=== PATIENT | male | born 1960 | race Caucasian/White ===

== ENCOUNTER 2020-04-14 10:06 | Emergency (ER) | payer MEDICARE, BC ==
[2020-04-14 10:29] VITALS: BP 106/71; PULSE 100
[2020-04-14] MEDS ORDERED: Sodium Chloride 0.9% 10 ML Syringe FLUSH PRN (10:57)
--- NOTE | 2020-04-14 11:09 | EDM.PDOC ---
ED HPI GENERAL MEDICAL PROBLEM - General Chief Complaint: General Stated Complaint: LIGHT HEADED/WEAK Time Seen by Provider: 04/14/20 10:50 Source of Information: Reports: Patient History Limitations: Reports: No Limitations, Other (Vitals upon presentation the emergency department temp 96.7 pulse 100, respiratory rate 18, blood pressure 106/71, pulse ox 98% on room air.) - History of Present Illness INITIAL COMMENTS - FREE TEXT/NARRATIVE: 60-year-old male presents to the emergency department with complaints of dizziness and a dry throat for the past 3 days. States he went to the [facility] this morning and they referred him to the emergency department. States he has not had any syncopal episodes however he is dizzy and has a persistent dry throat. Patient does have a history of hypertension for which he takes Cardura. Is also diabetic controlled with Metformin and Levemir. States his blood sugars have been normal for him. - Related Data Allergies Allergy/AdvReac Type Severity Reaction Status Date / Time No Known Allergies Allergy Verified 04/14/20 10:29 Home Meds: Home Meds Cyclopentolate [Cyclogyl 1% Opth Soln] 1 drop EYEBOTH TID 02/04/15 [History] Doxazosin Mesylate [Cardura] 8 mg PO DAILY 02/04/15 [History] Insulin Detemir [Levemir Flextouch] 20 units SQ ACBREAKFAST 02/04/15 [History] Lisinopril [Prinivil] 10 mg PO DAILY 02/04/15 [History] NIFEdipine [Adalat cc] 30 mg PO DAILY 02/04/15 [History] Simvastatin [Zocor] 40 mg PO BEDTIME 02/04/15 [History] amLODIPine [Norvasc] 10 mg PO DAILY 02/04/15 [History] metFORMIN [Glucophage] 1,000 mg PO BID 02/04/15 [History] Past Medical History - Past Surgical History Other HEENT Surgeries/Procedures: 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 Denies: Fever, Chills, Malaise HEENT: Reports: Other (Patient is blind) Respiratory: Reports: No Symptoms Cardiovascular: Reports: Lightheadedness. Denies: Chest Pain, Edema, Palpitations, Syncope Endocrine: Reports: No Symptoms GI/Abdominal: Reports: No Symptoms : Reports: No Symptoms Musculoskeletal: Reports: No Symptoms Skin: Reports: No Symptoms Neurological: Reports: No Symptoms Psychiatric: Reports: No Symptoms Hematologic/Lymphatic: Reports: No Symptoms Immunologic: Reports: No Symptoms ED EXAM, GENERAL - Physical Exam Exam: See Below Exam Limited By: No Limitations General Appearance: Alert, WD/WN, No Apparent Distress Eye Exam: Bilateral Eye: Other (blind) Ears: Hearing Grossly Normal Nose: Normal Inspection Throat/Mouth: Normal Inspection, Normal Voice, No Airway Compromise Head: Atraumatic, Normocephalic Neck: Normal Inspection, Supple, Non-Tender, Full Range of Motion Respiratory/Chest: No Respiratory Distress, Lungs Clear, Normal Breath Sounds, No Accessory Muscle Use, Chest Non-Tender Cardiovascular: Normal Peripheral Pulses, Regular Rate, Rhythm, No Edema, No Murmur Peripheral Pulses: 2+: Radial (L), Radial (R), Dorsalis Pedis (L), Dorsalis Pedis (R) GI/Abdominal: Normal Bowel Sounds, Soft, Non-Tender, No Distention (Male) Exam: Deferred Rectal (Males) Exam: Deferred Back Exam: Normal Inspection, Full Range of Motion Extremities: Normal Inspection, Normal Range of Motion, Non-Tender, No Pedal Edema, Normal Capillary Refill Neurological: Alert, Oriented, Normal Cognition Psychiatric: Normal Affect, Normal Mood Skin Exam: Warm, Dry, Intact, Normal Color, No Rash Lymphatic: No Adenopathy #1 Interpretation EKG Date: 04/14/20 Time: 11:52 Rhythm: NSR Rate (Beats/Min): 83 [place]: Normal P-Wave: Present QRS: Normal ST-T: Normal QT: Normal EKG Interpretation Comments: Normal sinus rhythm per Dr. Perez interpretation. Course - Vital Signs Text/Narrative:: 60-year-old male presents to the emergency department with complaints of feeling dizzy and having a dry throat. Patient went to [facility] this morning to be evaluated however he was sent to the emergency department. Patient states he is felt weak and dizzy for the past 3 days and has had a very dry throat. He denies complaints of fever, chills, nausea, vomiting, diarrhea, headache, or general malaise. Denies syncopal episodes. Patient states he is a diabetic managed with Metformin and Levemir. States his blood sugars have been well controlled over the past few days. I have ordered a CBC a CMP, magnesium, troponin, chest x-ray, and an EKG. Last Recorded V/S: Last Vital Signs Temp 96.7 F L 04/14/20 10:25 Pulse 100 04/14/20 10:25 Resp 18 04/14/20 10:25 BP 106/71 04/14/20 10:25 Pulse Ox 98 04/14/20 10:25 - Orders/Labs/Meds Orders: Active Orders 24 hr Category Date Time Status EKG Documentation Completion [RC] STAT Care 04/14/20 10:57 Active Magnesium Sulfate/Water [Magnesium Sulfate in Water Med 04/14/20 12:20 Active Premix] 2 gm in 50 ml IV ONETIME Sodium Chloride 0.9% [Saline Flush] Med 04/14/20 10:57 Active 10 ml FLUSH ASDIRECTED PRN Saline Lock Insert [OM.PC] Stat Oth 04/14/20 10:57 Ordered Medication Orders Magnesium Sulfate (Magnesium Sulfate In Water Premix) 2 gm in 50 mls @ 25 mls/hr IV ONETIME ONE Stop: 04/14/20 14:19 Last Admin: 04/14/20 12:39 Dose: 25 mls/hr Documented by: HERMMIC Sodium Chloride (Saline Flush) 10 ml FLUSH ASDIRECTED PRN PRN Reason: Keep Vein Open Last Admin: 04/14/20 11:30 Dose: 10 ml Documented by: HERMMIC Labs: Laboratory Tests 04/14/20 04/14/20 Range/Units 11:20 11:20 WBC 6.68 (4.23-9.07) K/mm3 RBC 4.17 L (4.63-6.08) M/mm3 Hgb 12.9 L D (13.7-17.5) gm/dl Hct 39.0 L (40.1-51.0) % MCV 93.5 H (79.0-92.2) fl MCH 30.9 (25.7-32.2) pg MCHC 33.1 (32.2-35.5) g/dl RDW Std Deviation 42.4 (35.1-43.9) fL Plt Count 229 (163-337) K/mm3 MPV 8.8 L (9.4-12.3) fl Neut % (Auto) 71.9 H (34.0-67.9) % Lymph % (Auto) 19.8 L (21.8-53.1) % [place] % (Auto) 7.2 (5.3-12.2) % Eos % (Auto) 0.9 (0.8-7.0) Baso % (Auto) 0.1 (0.1-1.2) % Neut # (Auto) 4.80 (1.78-5.38) K/mm3 Lymph # (Auto) 1.32 (1.32-3.57) K/mm3 [place] # (Auto) 0.48 (0.30-0.82) K/mm3 Eos # (Auto) 0.06 (0.04-0.54) K/mm3 Baso # (Auto) 0.01 (0.01-0.08) K/mm3 Sodium 139 (136-145) mEq/L Potassium 5.2 H (3.5-5.1) mEq/L Chloride 106 (98-107) mEq/L Carbon Dioxide 22 (21-32) mEq/L Anion Gap 16.2 H (5-15) BUN 30 H (7-18) mg/dL Creatinine 2.3 H (0.7-1.3) mg/dL Est Cr Clr Drug Dosing 31.21 mL/min Estimated GFR (MDRD) 29 (>60) mL/min BUN/Creatinine Ratio 13.0 L (14-18) Glucose 87 (74-106) mg/dL Calcium 9.5 (8.5-10.1) mg/dL Magnesium 1.2 L (1.8-2.4) mg/dl Total Bilirubin 0.4 (0.2-1.0) mg/dL AST 22 (15-37) U/L ALT 37 (16-63) U/L Alkaline Phosphatase 67 (46-116) U/L Troponin I < 0.017 (0.00-0.056) ng/mL Total Protein 8.6 H (6.4-8.2) g/dl Albumin 3.9 (3.4-5.0) g/dl Globulin 4.7 gm/dL Albumin/Globulin Ratio 0.8 L (1-2) Meds: Medications Generic Name Dose Route Start Last Admin Trade Name Juliocesar PRN Reason Stop Dose Admin Magnesium Sulfate 2 gm in 50 mls @ 25 mls/hr 04/14/20 12:20 04/14/20 12:39 Magnesium Sulfate In Water Premix IV 04/14/20 14:19 25 mls/hr ONETIME ONE Administration Sodium Chloride 10 ml 04/14/20 10:57 04/14/20 11:30 Saline Flush FLUSH 10 ml ASDIRECTED PRN Administration Keep Vein Open Discontinued Medications Generic Name Dose Route Start Last Admin Trade Name Juliocesar PRN Reason Stop Dose Admin Sodium Chloride 1,000 mls @ 999 mls/hr 04/14/20 12:20 04/14/20 12:39 Normal Saline IV 04/14/20 13:20 999 mls/hr ONETIME ONE Administration Magnesium Oxide 400 mg 04/14/20 12:21 04/14/20 12:50 Magnesium Oxide PO 04/14/20 12:22 400 mg ONETIME ONE Administration - Radiology Interpretation Free Text/Narrative:: Nothing acute seen on portable chest x-ray. - Re-Assessments/Exams Free Text/Narrative Re-Assessment/Exam: 04/14/20 12:23 Labs reveal WBC 6.68, hemoglobin 12.9, hematocrit 39, potassium 5.2, anion gap 16.2, BUN 30, creatinine 2.3, magnesium 1.2, troponin less than 0.017. 04/14/20 12:23 I have ordered a liter of normal saline to run wide open, magnesium 2 g IV, and Mag-Ox 400 mg p.o. 04/14/20 14:02 We will discharge the patient to home with a prescription for Mag-Ox 400 mg daily for the next 5 days. Patient is to follow-up with Dr. Caldwell within the week. Departure - Departure Time of Disposition: 14:02 Disposition: Home, Self-Care 01 Condition: Good Clinical Impression: Hypomagnesemia - Discharge Information Referrals: Shiva Caldwell MD [Primary Care Provider] - Forms: ED Department Discharge Additional Instructions: You are seen in the ER with complaints of dizziness and a dry throat. Chest x- ray and electrocardiogram were unremarkable. All lab work was unremarkable with the exception of a low magnesium level. You were given 2 g of magnesium in the IV. And a liter of IV fluids. You will need to continue taking magnesium 400 mg orally once a day for the next 5 days. You will need to schedule an appointment to follow-up with Dr. Caldwell in the next week. Should your condition worsen or change please return to the emergency department Sepsis Event Note (ED) - Evaluation Sepsis Screening Result: No Definite Risk - Focused Exam Vital Signs: Vital Signs Temp Pulse Resp BP Pulse Ox 04/14/20 10:25 96.7 F L 100 18 106/71 98 - My Orders Last 24 Hours: My Active Orders 04/14/20 10:57 EKG Documentation Completion [RC] STAT Sodium Chloride 0.9% [Saline Flush] 10 ml FLUSH ASDIRECTED PRN Saline Lock Insert [OM.PC] Stat 04/14/20 12:20 Magnesium Sulfate/Water [Magnesium Sulfate in Water Premix] 2 gm in 50 ml IV ONETIME - Assessment/Plan Last 24 Hours: My Active Orders 04/14/20 10:57 EKG Documentation Completion [RC] STAT Sodium Chloride 0.9% [Saline Flush] 10 ml FLUSH ASDIRECTED PRN Saline Lock Insert [OM.PC] Stat 04/14/20 12:20 Magnesium Sulfate/Water [Magnesium Sulfate in Water Premix] 2 gm in 50 ml IV ONETIME
--- NOTE | 2020-04-14 11:54 | CR ---
Chest: Portable view of the chest was obtained. Comparison: Prior chest x-ray of 02/04/15. Heart size and mediastinum are normal. Minimal atelectasis is seen within the left mid to lower lung. Lungs otherwise are clear. Bony structures are grossly intact. Impression: 1. Findings believed to be incidental. Nothing acute is seen. Diagnostic code #2
[2020-04-14] MEDS ORDERED: Sodium Chloride 0.9% 1,000 ML IV ONE (12:20)
[2020-04-14] MEDS ORDERED: Magnesium Sulfate/Water 2 GM/50 ML BAG IV ONE (12:20)
[2020-04-14] MEDS ORDERED: Magnesium Oxide 400 MG Tab PO ONE (12:21)
== END 2020-04-14 14:31 | disposition home or self-care (01) ==
LOC: JD.ED 10:06
DX: E83.42 Hypomagnesemia (principal); I10 Essential (primary) hypertension; E11.9 Type 2 diabetes mellitus without complications; Z79.4 Long term (current) use of insulin; Z79.899 Other long term (current) drug therapy
CPT/HCPCS: 36415; 71045; 80053; 83735; 84484; 85025; 93005; 96365; 96366; 99284; A9270; J3475; J7030

== ENCOUNTER 2020-04-17 15:18 | Emergency (ER) | payer MEDICARE, BC ==
[2020-04-17 15:31] VITALS: BP 151/86; PULSE 91
--- NOTE | 2020-04-17 15:57 | EDM.PDOC ---
ED HPI GENERAL MEDICAL PROBLEM - General Chief Complaint: Headache Stated Complaint: CHILLS,WEAK,UNSTEADY Time Seen by Provider: 04/17/20 15:54 - History of Present Illness INITIAL COMMENTS - FREE TEXT/NARRATIVE: 60-year-old male presents the emergency room with continued lightheadedness in a swimming sensation in his head. Patient denies really having much of a headache he just is lightheaded and unsteady when he tries to get up on his feet. This seems to improve a little bit when he is up for a while. He was seen here several days ago received some IV fluids that helped a little bit and he was noted to have a low magnesium his BUN and creatinine are elevated as was his anion gap. Patient denies any fevers or chills and he has no pain. Patient has no breathing difficulty shortness of breath chest pain. Headache Pain Score (Numeric/FACES): 4 - Related Data Allergies Allergy/AdvReac Type Severity Reaction Status Date / Time No Known Allergies Allergy Verified 04/17/20 15:31 Home Meds: Home Meds Cyclopentolate [Cyclogyl 1% Opth Soln] 1 drop EYEBOTH TID 02/04/15 [History] Doxazosin Mesylate [Cardura] 8 mg PO DAILY 02/04/15 [History] Insulin Detemir [Levemir Flextouch] 20 units SQ ACBREAKFAST 02/04/15 [History] Lisinopril [Prinivil] 10 mg PO DAILY 02/04/15 [History] NIFEdipine [Adalat cc] 30 mg PO DAILY 02/04/15 [History] Simvastatin [Zocor] 40 mg PO BEDTIME 02/04/15 [History] amLODIPine [Norvasc] 10 mg PO DAILY 02/04/15 [History] metFORMIN [Glucophage] 1,000 mg PO BID 02/04/15 [History] Magnesium Oxide 400 mg PO DAILY #7 tab 04/14/20 [Rx] Aspirin [Aspirin EC] 81 mg PO DAILY 04/17/20 [History] Past Medical History Cardiovascular History: Reports: Hypertension Endocrine/Metabolic History: Reports: Diabetes, Type II, Obesity/BMI 30+ - Past Surgical History Other HEENT Surgeries/Procedures: 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 Denies: Fever, Chills, Weakness HEENT: Reports: No Symptoms, Other (Patient is completely blind) Respiratory: Reports: No Symptoms Cardiovascular: Reports: No Symptoms, Other (No history of heart failure or other cardiac problems) Endocrine: Reports: No Symptoms GI/Abdominal: Reports: No Symptoms : Reports: No Symptoms Musculoskeletal: Reports: No Symptoms Skin: Reports: No Symptoms Neurological: Reports: Other (He has some lightheadedness). Denies: Confusion Psychiatric: Reports: No Symptoms - Physical Exam Exam: See Below Exam Limited By: No Limitations General Appearance: Alert, WD/WN, No Apparent Distress Ears: Normal External Exam, Normal Canal, Hearing Grossly Normal, Normal TMs Nose: Normal Inspection, Normal Mucosa, No Blood Throat/Mouth: Normal Inspection, Normal Lips, Normal Teeth, Normal Gums, Normal Oropharynx, Normal Voice, No Airway Compromise Head Exam: Atraumatic, Normocephalic Neck: Normal Inspection, Supple, Non-Tender, Full Range of Motion. No: Lymphadenopathy (L), Lymphadenopathy (R) Respiratory/Chest: No Respiratory Distress, Lungs Clear, Normal Breath Sounds Cardiovascular: Regular Rate, Rhythm, No Edema, No Murmur GI/Abdominal: Normal Bowel Sounds, Soft, Non-Tender Neuro Exam (Abbreviated): Alert, Oriented, Normal Cognition, No Motor/Sensory Deficits, Other (Cranial nerves 4 through 12 intact) Back Exam: Normal Inspection. No: CVA Tenderness (L), CVA Tenderness (R) Extremities: No Pedal Edema Psychiatric: Normal Affect, Normal Mood Course - Vital Signs Last Recorded V/S: Last Vital Signs Temp 36.4 C 04/17/20 15:28 Pulse 91 04/17/20 15:28 Resp 18 04/17/20 15:28 BP 151/86 H 04/17/20 15:28 Pulse Ox 96 04/17/20 15:28 - Orders/Labs/Meds Orders: Active Orders 24 hr Category Date Time Status Sodium Chloride 0.9% [Normal Saline] 1,000 ml Med 04/17/20 18:12 Active IV ONETIME Medication Orders Sodium Chloride (Normal Saline) 1,000 mls @ 999 mls/hr IV ONETIME ONE Stop: 04/17/20 19:12 Last Admin: 04/17/20 18:19 Dose: 999 mls/hr Documented by: KIANA Labs: Laboratory Tests 04/17/20 04/17/20 04/17/20 Range/Units 16:35 16:35 18:08 WBC 5.95 (4.23-9.07) K/mm3 RBC 3.83 L (4.63-6.08) M/mm3 Hgb 12.0 L (13.7-17.5) gm/dl Hct 35.7 L (40.1-51.0) % MCV 93.2 H (79.0-92.2) fl MCH 31.3 (25.7-32.2) pg MCHC 33.6 (32.2-35.5) g/dl RDW Std Deviation 40.8 (35.1-43.9) fL Plt Count 216 (163-337) K/mm3 MPV 8.6 L (9.4-12.3) fl Neut % (Auto) 69.3 H (34.0-67.9) % Lymph % (Auto) 20.3 L (21.8-53.1) % [place] % (Auto) 8.9 (5.3-12.2) % Eos % (Auto) 1.3 (0.8-7.0) Baso % (Auto) 0.2 (0.1-1.2) % Neut # (Auto) 4.12 (1.78-5.38) K/mm3 Lymph # (Auto) 1.21 L (1.32-3.57) K/mm3 [place] # (Auto) 0.53 (0.30-0.82) K/mm3 Eos # (Auto) 0.08 (0.04-0.54) K/mm3 Baso # (Auto) 0.01 (0.01-0.08) K/mm3 Sodium 135 L (136-145) mEq/L Potassium 5.0 (3.5-5.1) mEq/L Chloride 103 (98-107) mEq/L Carbon Dioxide 21 (21-32) mEq/L Anion Gap 16.0 H (5-15) BUN 29 H (7-18) mg/dL Creatinine 1.7 H (0.7-1.3) mg/dL Est Cr Clr Drug Dosing 42.22 mL/min Estimated GFR (MDRD) 41 (>60) mL/min BUN/Creatinine Ratio 17.1 (14-18) Glucose 114 H (74-106) mg/dL Calcium 9.2 (8.5-10.1) mg/dL Magnesium 1.4 L (1.8-2.4) mg/dl Total Bilirubin 0.3 (0.2-1.0) mg/dL AST 20 (15-37) U/L ALT 31 (16-63) U/L Alkaline Phosphatase 65 (46-116) U/L Total Protein 7.8 (6.4-8.2) g/dl Albumin 3.9 (3.4-5.0) g/dl Globulin 3.9 gm/dL Albumin/Globulin Ratio 1.0 (1-2) Urine Color Yellow (Yellow) Urine Appearance Clear (Clear) Urine pH 6.0 (5.0-8.0) Ur Specific [place] 1.020 (1.005-1.030) Urine Protein Negative (Negative) Urine Glucose (UA) Negative (Negative) Urine Ketones Negative (Negative) Urine Occult Blood Negative (Negative) Urine Nitrite Negative (Negative) Urine Bilirubin Negative (Negative) Urine Urobilinogen 0.2 (0.2-1.0) Ur Leukocyte Esterase Negative (Negative) Meds: Medications Generic Name Dose Route Start Last Admin Trade Name Freq PRN Reason Stop Dose Admin Sodium Chloride 1,000 mls @ 999 mls/hr 04/17/20 18:12 04/17/20 18:19 Normal Saline IV 04/17/20 19:12 999 mls/hr ONETIME ONE Administration Discontinued Medications Generic Name Dose Route Start Last Admin Trade Name Freq PRN Reason Stop Dose Admin Magnesium Sulfate 2 gm in 50 mls @ 25 mls/hr 04/17/20 16:13 04/17/20 16:21 Magnesium Sulfate In Water Premix IV 04/17/20 18:12 25 mls/hr ONETIME ONE Administration Sodium Chloride 1,000 mls @ 999 mls/hr 04/17/20 16:13 04/17/20 16:21 Normal Saline IV 04/17/20 17:13 999 mls/hr ONETIME ONE Administration - Re-Assessments/Exams Free Text/Narrative Re-Assessment/Exam: 04/17/20 18:26 The patient has still getting some magnesium we will give a second liter of fluid. He does feel little bit better. His hemoglobin hematocrit is slightly decreased his potassium is 5 BUN was 29 creatinine 1.7 which is up from 5 years ago when it was 1.4 his magnesium still low at 1.4 urinalysis is not suggestive of infectious process or other abnormalities. Anticipate discharging after this liter of fluid. 04/17/20 19:09 Continues to improve we will discharge in another 10 minutes Departure - Departure Time of Disposition: 19:11 Disposition: Home, Self-Care 01 Clinical Impression: Dehydration, Hypomagnesemia - Discharge Information Referrals: Shiva Caldwell MD [Primary Care Provider] - Forms: ED Department Discharge Additional Instructions: Return to the emergency room with any questions problems or worsening symptoms. Start the magnesium oxide 400 mg daily. Follow-up with your regular physician this next week for follow-up and recheck your labs. Sepsis Event Note (ED) - Evaluation Sepsis Screening Result: No Definite Risk - Focused Exam Vital Signs: Vital Signs Temp Pulse Resp BP Pulse Ox 04/17/20 15:28 36.4 C 91 18 151/86 H 96 - My Orders Last 24 Hours: My Active Orders 04/17/20 18:12 Sodium Chloride 0.9% [Normal Saline] 1,000 ml IV ONETIME - Assessment/Plan Last 24 Hours: My Active Orders 04/17/20 18:12 Sodium Chloride 0.9% [Normal Saline] 1,000 ml IV ONETIME
[2020-04-17] MEDS ORDERED: Magnesium Sulfate/Water 2 GM/50 ML BAG IV ONE (16:13)
[2020-04-17] MEDS ORDERED: Sodium Chloride 0.9% 1,000 ML IV ONE ×2 (16:13→18:12)
== END 2020-04-17 19:22 | disposition home or self-care (01) ==
LOC: JD.ED 15:18
DX: E83.42 Hypomagnesemia (principal); E86.0 Dehydration; I10 Essential (primary) hypertension; E11.9 Type 2 diabetes mellitus without complications; E66.9 Obesity, unspecified; Z68.31 Body mass index [BMI] 31.0-31.9, adult; Z79.4 Long term (current) use of insulin; Z79.899 Other long term (current) drug therapy
CPT/HCPCS: 36415; 80053; 81003; 83735; 85025; 96365; 96366; 99284; J3475; J7030

== ENCOUNTER 2020-04-22 14:33 | Emergency (ER) | payer MEDICARE, BC ==
[2020-04-22 14:39] VITALS: BP 155/83; PULSE 91
--- NOTE | 2020-04-22 15:53 | EDM.PDOC ---
ED HPI GENERAL MEDICAL PROBLEM - General Chief Complaint: General Stated Complaint: [facility] Time Seen by Provider: 04/22/20 15:25 Source of Information: Reports: Patient, Old Records, RN Notes Reviewed History Limitations: Reports: No Limitations - History of Present Illness INITIAL COMMENTS - FREE TEXT/NARRATIVE: Patient is a 60-year-old male returning to the emergency department with complaints of ongoing dizziness and unsteadiness with ambulation. He states it feels like "something is swimming in his head ". When asked if he feels lightheaded or if it feels like the room is spinning, he states it feels like the room is spinning. Symptoms are worse with position changes, particularly sitting upright. Lying flat improves the symptoms, however they return when he turns his head to the left. Symptoms have been going on for approximately 10 days. He was seen in the emergency department 2 other occasions and found to have low magnesium. Magnesium was replaced and he did feel slightly better, however symptoms did return. - Related Data Allergies Allergy/AdvReac Type Severity Reaction Status Date / Time No Known Allergies Allergy Verified 04/22/20 14:39 Home Meds: Home Meds Cyclopentolate [Cyclogyl 1% Opth Soln] 1 drop EYEBOTH TID 02/04/15 [History] Doxazosin Mesylate [Cardura] 8 mg PO DAILY 02/04/15 [History] Insulin Detemir [Levemir Flextouch] 20 units SQ ACBREAKFAST 02/04/15 [History] Lisinopril [Prinivil] 10 mg PO DAILY 02/04/15 [History] NIFEdipine [Adalat cc] 30 mg PO DAILY 02/04/15 [History] Simvastatin [Zocor] 40 mg PO BEDTIME 02/04/15 [History] amLODIPine [Norvasc] 10 mg PO DAILY 02/04/15 [History] metFORMIN [Glucophage] 1,000 mg PO BID 02/04/15 [History] Magnesium Oxide 400 mg PO DAILY #7 tab 04/14/20 [Rx] Aspirin [Aspirin EC] 81 mg PO DAILY 04/17/20 [History] Magnesium Oxide [Mag-Oxide] 400 mg PO DAILY #30 tablet 04/22/20 [Rx] Meclizine [Antivert] 25 mg PO TID PRN #30 tab 04/22/20 [Rx] Past Medical History Cardiovascular History: Reports: Hypertension Endocrine/Metabolic History: Reports: Diabetes, Type II, Obesity/BMI 30+ - Past Surgical History Other HEENT Surgeries/Procedures: 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 Denies: Fever, Chills, Fatigue, Decreased Appetite HEENT: Reports: Other (pt is blind). Denies: Ear Pain, Hearing Loss Respiratory: Reports: No Symptoms Cardiovascular: Reports: No Symptoms Endocrine: Reports: No Symptoms GI/Abdominal: Reports: No Symptoms. Denies: Nausea, Vomiting : Reports: No Symptoms Musculoskeletal: Reports: No Symptoms Skin: Reports: No Symptoms Neurological: Reports: Dizziness, Other ("off-balance" with ambulation). Denies: Headache Psychiatric: Reports: No Symptoms Hematologic/Lymphatic: Reports: No Symptoms Immunologic: Reports: No Symptoms ED EXAM, GENERAL - Physical Exam Exam: See Below General Appearance: Alert, WD/WN, No Apparent Distress Eye Exam: Bilateral Eye: Normal Inspection, PERRL Respiratory/Chest: No Respiratory Distress, Lungs Clear, Normal Breath Sounds, No Accessory Muscle Use, Chest Non-Tender Cardiovascular: Normal Peripheral Pulses, Regular Rate, Rhythm, No Edema, No Gallop, No JVD, No Murmur, No Rub GI/Abdominal: Normal Bowel Sounds, Soft, Non-Tender, No Organomegaly, No Distention, No Abnormal Bruit, No Mass Neurological: Alert, Oriented, CN II-XII Intact, Normal Cognition, Normal Gait, Normal Reflexes, No Motor/Sensory Deficits, Other (dizziness worse with sitting upright. no change with head turning.) Psychiatric: Normal Affect, Normal Mood Skin Exam: Warm, Dry, Intact, Normal Color, No Rash Course - Vital Signs Last Recorded V/S: Last Vital Signs Temp 97.6 F 04/22/20 14:37 Pulse 91 04/22/20 14:37 Resp 16 04/22/20 14:37 BP 155/83 H 04/22/20 14:37 Pulse Ox 93 L 04/22/20 14:37 Orthostatic Blood Pressure [ 116/68 Sitting] Orthostatic Blood Pressure [ 112/67 Standing] Orthostatic Blood Pressure [ 124/70 Supine] - Orders/Labs/Meds Labs: Laboratory Tests 04/22/20 04/22/20 Range/Units 15:40 15:40 WBC 7.23 (4.23-9.07) K/mm3 RBC 3.77 L (4.63-6.08) M/mm3 Hgb 11.7 L (13.7-17.5) gm/dl Hct 35.7 L (40.1-51.0) % MCV 94.7 H (79.0-92.2) fl MCH 31.0 (25.7-32.2) pg MCHC 32.8 (32.2-35.5) g/dl RDW Std Deviation 42.2 (35.1-43.9) fL Plt Count 219 (163-337) K/mm3 MPV 8.5 L (9.4-12.3) fl Neut % (Auto) 74.9 H (34.0-67.9) % Lymph % (Auto) 15.9 L (21.8-53.1) % [place] % (Auto) 8.3 (5.3-12.2) % Eos % (Auto) 0.8 (0.8-7.0) Baso % (Auto) 0.0 L (0.1-1.2) % Neut # (Auto) 5.41 H (1.78-5.38) K/mm3 Lymph # (Auto) 1.15 L (1.32-3.57) K/mm3 [place] # (Auto) 0.60 (0.30-0.82) K/mm3 Eos # (Auto) 0.06 (0.04-0.54) K/mm3 Baso # (Auto) 0.00 L (0.01-0.08) K/mm3 Sodium 137 (136-145) mEq/L Potassium 4.6 (3.5-5.1) mEq/L Chloride 103 (98-107) mEq/L Carbon Dioxide 23 (21-32) mEq/L Anion Gap 15.6 H (5-15) BUN 37 H (7-18) mg/dL Creatinine 1.8 H (0.7-1.3) mg/dL Est Cr Clr Drug Dosing 39.88 mL/min Estimated GFR (MDRD) 39 (>60) mL/min BUN/Creatinine Ratio 20.6 H (14-18) Glucose 161 H (74-106) mg/dL Calcium 8.6 (8.5-10.1) mg/dL Magnesium 1.5 L (1.8-2.4) mg/dl Total Bilirubin 0.4 (0.2-1.0) mg/dL AST 18 (15-37) U/L ALT 30 (16-63) U/L Alkaline Phosphatase 64 (46-116) U/L C-Reactive Protein 0.2 (<1.0) mg/dL Total Protein 7.4 (6.4-8.2) g/dl Albumin 3.6 (3.4-5.0) g/dl Globulin 3.8 gm/dL Albumin/Globulin Ratio 1.0 (1-2) Meds: Medications Discontinued Medications Generic Name Dose Route Start Last Admin Trade Name Freq PRN Reason Stop Dose Admin Lorazepam 0.5 mg 04/22/20 17:16 04/22/20 17:26 Ativan IVPUSH 04/22/20 17:17 0.5 mg ONETIME ONE Administration Meclizine HCl 25 mg 04/22/20 15:34 04/22/20 16:52 Antivert PO 04/22/20 15:35 Not Given ONETIME ONE Meclizine HCl 25 mg 04/22/20 18:18 04/22/20 18:28 Antivert PO 04/22/20 18:19 25 mg ONETIME ONE Administration Metoclopramide HCl 10 mg 04/22/20 16:25 04/22/20 16:39 Reglan IVPUSH 04/22/20 16:26 10 mg ONETIME ONE Administration - Re-Assessments/Exams Free Text/Narrative Re-Assessment/Exam: Patient is a 60-year-old male presenting to the emergency department with complaints of ongoing dizziness. He describes it as feeling like "something is swishing around in his head ". He complains of unsteadiness with ambulation. States it is positional. When he sits up the symptoms are significantly worse than when he lies down. Denies any history of vertigo. He has had no ear pain. On exam, he does have a significant amount of cerumen in his right ear, therefore TM was unable to be visualized. We will irrigate this ear. There is a small amount of fluid behind his right ear but no redness or bulging. I ordered a CT scan of the head to rule out acoustic neuroma or any other abnormalities. Also ordered CBC, CMP, CRP. Will give Reglan 10 mg IV. 04/22/[address] scan per radiologist shows no acute findings. Hematology was significant for a hemoglobin slightly low at 11.7, anion gap 15.6, BUN 27, creatinine 1.8, magnesium low at 1.5. He did take 400 mg of mag oxide for 7 days, however he is no longer taking this. Will recommend that he restart this. He does continue to have dizziness. I have ordered Ativan 0.5 mg IV. 04/22/20 1820 Patient did have some improvement in symptoms after the Ativan administration. He does however continue to complain of some dizziness. I ordered meclizine 25 mg p.o. 04/22/20 19:08 Patient has had further improvement after the meclizine. He would like to wait about 15 minutes and then we will have him ambulate. 04/22/20 19:35 Patient did well with ambulation. States he is not 100% but is feeling much better. We will discharge her home with a prescription for meclizine. Also advised that he should take the mag oxide 400 mg daily. I will send a prescription for this as well. Recommend follow-up in the clinic at the next available visit as he will likely require physical therapy for treatment of vertigo. He verbalized understanding. Discharge instructions as documented. Departure - Departure Time of Disposition: 19:36 Disposition: Home, Self-Care 01 Condition: Good Clinical Impression: Vertigo - Discharge Information *PRESCRIPTION DRUG MONITORING PROGRAM REVIEWED*: No *COPY OF PRESCRIPTION DRUG MONITORING REPORT IN PATIENT INGE: No Prescriptions: Meclizine [Antivert] 25 mg PO TID PRN #30 tab PRN Reason: Dizziness Magnesium Oxide [Mag-Oxide] 400 mg PO DAILY #30 tablet Instructions: Dizziness, [id number] Referrals: Shiva Caldwell MD [Primary Care Provider] - Forms: ED Department Discharge Additional Instructions: You were seen in the emergency department today for ongoing dizziness and being unbalanced. Work-up included blood work, and a CT scan of your head. Results of your work-up and exam are consistent with a diagnosis of vertigo. While in the ER, you received Reglan, Ativan, and meclizine which did improve your dizziness. A prescription for meclizine has been sent to your pharmacy. Take this medication every 8 hours as needed for dizziness. Your magnesium was also found to be slightly low. A prescription for magnesium oxide has been sent. Take this medication daily. Recommend that you call tomorrow morning to [facility] to set up a follow-up as soon as possible as you will likely require phys ical therapy for treatment of your vertigo symptoms. I would also recommend that repeat they recheck your magnesium in about 1 week. Return to ER as needed. Sepsis Event Note (ED) - Evaluation Sepsis Screening Result: No Definite Risk
[2020-04-22] MEDS ORDERED: Metoclopramide 10 MG/2 ML SDV IVPUSH ONE (16:25)
--- NOTE | 2020-04-22 16:29 | CT ---
Head CT Technique: Multiple axial sections through the brain were obtained. Intravenous contrast was not utilized. Reconstructed coronal and sagittal images were obtained. Comparison: Prior head CT study of 09/26/15. Findings: Ventricles along with basal cisterns and sulci over the convexities are slightly prominent. Several basal ganglia calcifications as well as several calcifications within the periventricular white matter are noted. These findings are stable from prior exam. No other abnormal parenchymal densities are seen. No evidence of intracranial hemorrhage. No midline shift or mass-effect is appreciated. Previous eye surgery is noted on both sides. Bone window settings were reviewed which show nothing acute within the visualized mastoid sinuses and visualized paranasal sinuses. No acute calvarial finding is appreciated. Impression: 1. Findings as noted above. 2. Nothing acute is appreciated. Diagnostic code #2
[2020-04-22] MEDS ORDERED: LORazepam 2 MG/ML SDV IVPUSH ONE (17:16)
== END 2020-04-22 20:07 | disposition home or self-care (01) ==
LOC: JD.ED 14:33
DX: R42 Dizziness and giddiness (principal); I10 Essential (primary) hypertension; E11.9 Type 2 diabetes mellitus without complications; E66.9 Obesity, unspecified; Z68.33 Body mass index [BMI] 33.0-33.9, adult; Z79.4 Long term (current) use of insulin; Z79.899 Other long term (current) drug therapy; Z79.82 Long term (current) use of aspirin
CPT/HCPCS: 36415; 70450; 80053; 83735; 85025; 86140; 96374; 96375; 99284; A9270; J2060; J2765